=== PATIENT | male | born 1980 | race Caucasian/White ===

== ENCOUNTER 2020-09-04 12:41 | Emergency (ER) | payer SELFPAY ==
[~2020-09-04] VITALS: Ht 167.6 cm; Wt 80.0 kg
[2020-09-04] MEDS ORDERED: AMOXICILLIN875 MG PO (13:45)
[2020-09-04 13:55] VITALS: BP 147/85
== END 2020-09-04 13:55 | disposition home or self-care (01) | DRG 605 ==
LOC: ED 12:41
DX: S80.871A Other superficial bite, right lower leg, initial encounter (principal); S61.451A Open bite of right hand, initial encounter; W54.0XXA Bitten by dog, initial encounter; Y93.01 Activity, walking, marching and hiking; Y92.410 Unspecified street and highway as the place of occurrence of the external cause